=== PATIENT | male | born 1980 | race Hispanic/Latino ===

== ENCOUNTER 2024-06-16 09:20 | Emergency (ER) | payer OTHER ==
[~2024-06-16] VITALS: Ht 182.9 cm; Wt 70.3 kg
[2024-06-16 09:40] VITALS: PULSE 55; RESP 16; TEMP 98.6; O2SAT 100
[2024-06-16] MEDS ORDERED: CITALOPRAM HBR10 MG PO (09:50)
== END 2024-06-16 10:00 | disposition home or self-care (01) ==
LOC: ER 09:39
DX: Z76.0 Encounter for issue of repeat prescription (principal); F32.A Depression, unspecified; F41.9 Anxiety disorder, unspecified; F17.210 Nicotine dependence, cigarettes, uncomplicated
CPT/HCPCS: 99283